=== PATIENT | male | born 1985 | race Two or more races ===

== ENCOUNTER 2017-09-07 19:17 | Emergency (ER) | payer SELFPAY ==
--- NOTE | 2017-09-07 19:55 | PDOC ---
Rapid Medical Evaluation Time Seen by Provider: 09/07/17 19:44 Medical Evaluation: 09/07/17 19:45 I have performed a brief in-person evaluation of this patient. The patient presents with a chief complaint of: 4 months of anxiety, worsening, "frustrated" to point of almost hurting someone but not homicidal, not taking anxiety meds, hx of smoking Pertinent physical exam findings: well appearing I have ordered the following: nothing The patient will proceed to the ED for further evaluation. Discharge Disposition - Diagnosis Anxiety - Referrals - Patient Instructions - Post Discharge Activity
[2017-09-07 19:56] VITALS: BP 138/85; PULSE 104; TEMP 98.8; BMI 32.5
--- NOTE | 2017-09-07 20:24 | PDOC ---
History of Present Illness - General Chief Complaint: Psychiatric Stated Complaint: ANXIETY Time Seen by Provider: 09/07/17 19:44 History Source: Patient Exam Limitations: No Limitations - History of Present Illness Initial Comments: CHIEF COMPLAINT: 31 y/o afebrile male c/o anxiety while trying to withdraw from percocet. HPI: The patient states he is trying to slowly withdraw from percocet abuse but he is having bouts of anxiety and frustration. He is trying to get to a clinic to get suboxone but needs something until he can get to one. He denies all other symptoms, including homicidal and suicidal ideations. Past History - Past Medical History Allergies/Adverse Reactions: Allergies No Known Allergies Allergy (Verified 09/07/17 19:50) Home Medications: Ambulatory Orders Diphenhydramine [Benadryl Capsule -] 50 mg PO TID #30 capsule 09/07/17 - Social History Smoking Status: Never smoked Number of Cigarettes Per Day: 20 *Review of Systems - Review of Systems Able to Perform ROS?: Yes Constitutional: No: Symptoms Reported HEENTM: No: Symptoms Reported Respiratory: No: Symptoms reported Cardiac (ROS): No: Symptoms Reported ABD/GI: No: Symptoms Reported : No: Symptoms Reported Musculoskeletal: No: Symptoms Reported Integumentary: No: Symptoms Reported Neurological: Yes: Other (anxiety). No: Headache, Seizure, Tremors, Dizziness Psychiatric: Yes: Anxiety *Physical Exam - Vital Signs Last Vital Signs Temp Pulse Resp BP Pulse Ox 98.8 F 104 H 18 138/85 99 09/07/17 19:52 09/07/17 19:52 09/07/17 19:52 09/07/17 19:52 09/07/17 19:52 - Physical Exam Comments: Very well appearing, ambulatory male, pleasant and talkative, in NAD or obvious discomfort. General Appearance: Yes: Nourished, Appropriately Dressed. 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 negative: Depressed Affect Plan - Progress Note Progress Note: A/P: 31 y/o male requesting something to help with his anxiety until he can get to the clinic to get his suboxone. He has no suicidal/homicidal ideation. No medical complaints. Will discharge to home with rx for benadryl. Informed him it may cause drowsiness. SUggested he f/u with referred Dr. Wells and Dr. Christine POLK and return to the ER immediately with any worsening or concenring symptoms. He did inform me he is going to try to get to clinic for suboxone this week. THe patient verbalizes understnading of all instructions, has no further questions and is awaiting discharge. - Order(s) Order(s): Orders Medication Instructions Recorded NK [No Known Home Medication] 09/07/17 *DC/Admit/Observation/Transfer Diagnosis at time of Disposition: Anxiety - Discharge Dispostion Disposition: HOME Condition at time of disposition: Good - Prescriptions Prescriptions: Diphenhydramine [Benadryl Capsule -] 50 mg PO TID #30 capsule - Referrals Referrals: Ruiz Wells MD [Staff Physician] - Funmilayo King MD [Staff Physician] - - Patient Instructions Printed Discharge Instructions: DI for Anxiety -- Adult Additional Instructions: Discharge INstructions: -Take prescription medication as prescribed if needed for anxiety -The prescription medication may cause drowsiness -Follow up with Dr. Wells and Dr. King within 1 week -Return to the ER with any worsening or concerning symptoms - Post Discharge Activity
== END 2017-09-07 21:27 | disposition home or self-care (01) ==
LOC: JERFT 19:17
DX: F41.9 Anxiety disorder, unspecified (principal)
CPT/HCPCS: 99281-25